=== PATIENT | female | born 1985 | race Caucasian/White ===

== ENCOUNTER → 2017-02-17 | Outpatient (CLI) | payer OTHER ==
[~2017-02-17] MED LIST: IOPAMIDOL (ISOVUE 370) 100 ML BTL IV ONE
== END ==
LOC: FIMAGING 16:30
PROVIDERS: ATTEND Family Medicine
DX: R51 Headache (principal); H53.9 Unspecified visual disturbance
CPT/HCPCS: Q9967

== ENCOUNTER → 2017-02-19 | Outpatient (CLI) | payer OTHER | LOC: FIMAGING 11:49 | PROVIDERS: ATTEND Physical Medicine & Rehabilitation Neuromuscular Medicine | DX: M54.2 Cervicalgia (principal) ==